=== PATIENT | female | born 2005 | race Caucasian/White ===

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

== ENCOUNTER 2024-02-26 20:52 | Emergency (ER) | payer BC, OTHER ==
[~2024-02-26] VITALS: Ht 162.6 cm; Wt 68.0 kg
== END 2024-02-26 23:26 | disposition home or self-care (01) ==
LOC: ER 20:52
DX: H92.02 Otalgia, left ear (principal); Z91.018 Allergy to other foods; Z88.8 Allergy status to other drugs, medicaments and biological substances
CPT/HCPCS: 99282

== ENCOUNTER → 2024-03-05 | Outpatient (CLI) | payer BC, OTHER ==
[2024-03-05 14:59] LABS: Hematocrit 32.6 % (33.0-51.0); Hemoglobin 10.1 g/dL (11.5-16.0)
== END | disposition home or self-care (01) ==
LOC: LAB SHORT 13:08 → LAB 13:08
PROVIDERS: Registered Nurse Community Health
DX: Z34.93 Encounter for supervision of normal pregnancy, unspecified, third trimester (principal)
CPT/HCPCS: 82950; 85014; 85018

== ENCOUNTER → 2024-03-18 | Outpatient (CLI) | payer BC, OTHER | END | disposition home or self-care (01) | LOC: LAB SHORT 17:02 → LAB 17:02 | DX: B37.31 Acute candidiasis of vulva and vagina (principal) | CPT/HCPCS: 87070; 87106; 87205 ==

== ENCOUNTER → 2024-04-28 | Outpatient (CLI) | payer BC, OTHER | END | disposition home or self-care (01) | LOC: LAB SHORT 18:45 → LAB 18:45 | DX: Z34.93 Encounter for supervision of normal pregnancy, unspecified, third trimester (principal) | CPT/HCPCS: 87081; 87150 ==

== ENCOUNTER 2024-05-31 17:11 | Emergency (ER) | payer BC, OTHER ==
[~2024-05-31] VITALS: Ht 162.6 cm; Wt 72.6 kg
[~2024-05-31 17:11] MED LIST: ACET325 PO
[2024-05-31 18:44] LABS: BASOPHILS ABSOLUTE AUTO 0.01 K/mm3 (0.00-0.23); BASOPHILS PERCENT AUTO 0 % (0-2); EOSINOPHILS ABSOLUTE AUTO 0.17 K/mm3 (0.00-0.68); EOSINOPHILS PERCENT AUTO 2 % (0-6); Hematocrit 39.9 % (33.0-51.0); Hemoglobin 12.2 g/dL (11.5-16.0); IMMATURE GRAN ABSOLUTE AUTO 0.02 K/mm3 (0.00-0.10); IMMATURE GRAN PERCENT AUTO 0 % (0-1); LYMPHOCYTES ABSOLUTE AUTO 2.15 K/mm3 (0.84-5.20); LYMPHOCYTES PERCENT AUTO 30 % (21-46); MONOCYTES ABSOLUTE AUTO 0.52 K/mm3 (0.16-1.47); MONOCYTES PERCENT AUTO 7 % (4-13); Mean Corpuscular HGB 23.7 pg (26.0-34.0); Mean Corpuscular HGB Conc 30.6 g/dL (31.5-36.5); Mean Corpuscular Volume 78 fL (80-100); NEUTROPHILS ABSOLUTE AUTO 4.37 K/mm3 (1.96-9.15); NEUTROPHILS PERCENT AUTO 60 % (41-73); Platelet Count 385 K/mm3 (150-400); RDW Coefficient Variation 15.5 % (11.7-14.2); RDW Standard Deviation 43.7 fL (35.1-46.3); Red Blood Cell Count 5.15 M/mm3 (3.80-5.20); White Blood Cell Count 7.24 K/mm3 (4.00-11.30)
[2024-05-31 19:03] LABS: Albumin, Blood 3.1 g/dL (3.4-5.0); Albumin/Globulin Ratio 0.6 (0.8-1.8); Bilirubin, Total 0.5 mg/dL (0.1-1.0); Bun/Creatinine Ratio 13.3 (12.0-20.0); Calcium, Blood 9.5 mg/dL (8.5-10.1); Creatinine, Blood 0.6 mg/dL (0.40-1.00); Globulin, Blood 4.9 g/dL (2.2-4.0); Potassium, Blood 3.7 mmol/L (3.5-5.5)
[2024-05-31 19:51] LABS: Source, Urine Clean Catch
[2024-05-31 19:56] LABS: Appearance, Urine Cloudy (Clear); Bilirubin, Urine Neg (Neg); Blood, Urine 5+ (Neg); Color, Urine Red (P-Yellow); Glucose Qualitative, Urine Neg (Neg); Ketones, Urine Neg (Neg); Leukocyte Esterase, Urine 3+ (Neg); Nitrite, Urine Neg (Neg); Protein, Urine 3+ (Neg); Specific Gravity, Urine 1.015 (1.003-1.022); Urobilinogen, Urine 1+ (Normal); pH, Urine 6.5 (5.0-8.0)
[2024-05-31 20:03] LABS: Amorphous Mod (0-Heavy); Bacteria Mod /hpf; Mucus Light (0-Heavy); Red Blood Cells, Urine 50-100 /hpf (0-2); Squamous Epithelial Cells Few /hpf (Few); White Blood Cells, Urine TNTC /hpf (0-5)
[2024-05-31] MEDS ORDERED: Ketorolac Tromethamine 30mg Vial IV ONE (22:50)
[2024-05-31] MEDS ORDERED: Dexamethasone Sod Phos 10 MG/ML 1ML VIAL IV ONE (22:50)
[2024-05-31] MEDS ORDERED: NS 1,000 ML IV SCH (22:50)
[2024-05-31] MEDS ORDERED: DiphenhydrAMINE HCl 50 MG/ML 1ML Vial IV ONE (22:50)
== END 2024-06-01 01:15 | disposition home or self-care (01) ==
LOC: ER 17:11
PROVIDERS: Student in an Organized Health Care Education/Training Program
DX: O99.893 Other specified diseases and conditions complicating puerperium (principal); O99.285 Endocrine, nutritional and metabolic diseases complicating the puerperium; G43.909 Migraine, unspecified, not intractable, without status migrainosus; R31.9 Hematuria, unspecified; Z91.018 Allergy to other foods; Z91.040 Latex allergy status
CPT/HCPCS: 80053; 81001; 85025; 87086; 87147; 96374; 96375; 99284-25

== ENCOUNTER 2024-07-24 13:09 | Emergency (ER) | payer BC, OTHER ==
[~2024-07-24] VITALS: Ht 162.6 cm; Wt 68.0 kg
[2024-07-24] MEDS ORDERED: CYCL10 PO (13:42)
== END 2024-07-24 13:42 | disposition home or self-care (01) ==
LOC: ER 13:09
DX: M54.50 Low back pain, unspecified (principal); Z79.899 Other long term (current) drug therapy; Z91.018 Allergy to other foods; Z91.040 Latex allergy status
CPT/HCPCS: 99282

== ENCOUNTER 2024-09-29 17:45 | Emergency (ER) | payer BC, OTHER ==
[~2024-09-29] VITALS: Ht 162.6 cm; Wt 65.8 kg
[~2024-09-29 17:45] MED LIST changes: +CYCL10 PO
== END 2024-09-29 18:36 | disposition home or self-care (01) ==
LOC: ER 17:45
DX: S90.31XA Contusion of right foot, initial encounter (principal); Z91.040 Latex allergy status; Z91.018 Allergy to other foods; W20.8XXA Other cause of strike by thrown, projected or falling object, initial encounter
CPT/HCPCS: 73630; 99283-25

== ENCOUNTER 2024-10-05 19:27 | Emergency (ER) | payer BC, OTHER ==
[~2024-10-05] VITALS: Ht 162.6 cm; Wt 65.8 kg
== END 2024-10-05 21:30 | disposition home or self-care (01) ==
LOC: ER 19:27
DX: M25.562 Pain in left knee (principal); Z91.040 Latex allergy status; Z91.018 Allergy to other foods; X50.1XXA Overexertion from prolonged static or awkward postures, initial encounter; Z88.8 Allergy status to other drugs, medicaments and biological substances
CPT/HCPCS: 73562-LT; 81025; 99283-25